=== PATIENT | male | born 1955 | race American Indian/Alaskan Native ===

== ENCOUNTER 2020-11-05 09:57 | Emergency (ER) | payer OTHER, MEDICARE ==
[2020-11-05 10:26] VITALS: BP 183/91
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
== END 2020-11-05 12:45 | disposition home or self-care (01) ==
LOC: ED 09:57
DX: S39.012A Strain of muscle, fascia and tendon of lower back, initial encounter (principal); M25.532 Pain in left wrist; Z79.899 Other long term (current) drug therapy; V49.49XA Driver injured in collision with other motor vehicles in traffic accident, initial encounter; Y93.89 Activity, other specified; Y92.488 Other paved roadways as the place of occurrence of the external cause; Y99.8 Other external cause status
CPT/HCPCS: 72100; 99283